=== PATIENT | female | born 1995 | race Caucasian/White ===

== ENCOUNTER 2016-09-03 19:36 | Emergency (ER) | payer MEDICAID, OTHER ==
[~2016-09-03] VITALS: Ht 162.6 cm; Wt 89.0 kg
[2016-09-03] MEDS ORDERED: ACETAMINOPHEN 325MG TABLET PO ONE (23:15)
[2016-09-03 23:23] LABS: CLARITY URINE CLEAR (CLEAR); COLOR URINE DARK YELLOW (YELLOW); GLUCOSE URINE NEGATIVE (NEGATIVE); KETONES URINE 1+ (NEGATIVE); LEUKOCYTE ESTERASE URINE TRACE (NEGATIVE); NITRITE URINE NEGATIVE (NEGATIVE); OCCULT BLOOD URINE NEGATIVE (NEGATIVE); PROTEIN URINE NEGATIVE (NEGATIVE); SPECIFIC GRAVITY URINE 1.028 (1.005-1.030)
[2016-09-03 23:40] LABS: BASOPHILS % 0.1 % (0.0-2.0); EOSINOPHILS % 0.4 % (0.0-5.0); HEMATOCRIT. 34.2 % (36.0-48.0); HEMOGLOBIN. 11.4 g/dL (12.0-16.0); MEAN CORPUSCULAR HEMOGLOBIN 28.3 pg (28.0-32.0); MEAN CORPUSCULAR VOLUME 84.7 fL (81.0-99.0); MEAN PLATELET VOLUME 7.8 fl (7.4-10.4); MONOCYTES % 4.1 % (2.0-8.0); NEUTROPHILS % 84.4 % (40.0-76.0); PLATELET 266 x1000/uL (130-400); RED BLOOD CELL COUNT 4.04 mill/uL (4.2-5.4); RED CELL DISTRIBUTION WIDTH 14.7 % (11.6-14.6)
[2016-09-03 23:45] LABS: CHLORIDE 109 mEq/L (98-107)
[2016-09-03 23:48] LABS: PROTHROMBIN TIME 10.2 sec
[2016-09-03 23:55] LABS: CARBON DIOXIDE 22 mEq/L (21-32)
[2016-09-04] MEDS ORDERED: SODIUM CHLORIDE 0.9% 1,000 ML IV ONE ×2 (01:15→04:00)
[2016-09-04 04:00] VITALS: BP 90/52
== END 2016-09-04 04:17 | disposition home or self-care (01) ==
LOC: ER 19:36
DX: O23.42 Unspecified infection of urinary tract in pregnancy, second trimester (principal); O26.612 Liver and biliary tract disorders in pregnancy, second trimester; K80.70 Calculus of gallbladder and bile duct without cholecystitis without obstruction; Z3A.22 22 weeks gestation of pregnancy
CPT/HCPCS: 36415; 76705; 76815; 80053; 80076; 81001; 81025; 83690; 85025; 85610; 96360; 96361; 99285; J7030; Z7610

== ENCOUNTER 2016-09-27 18:58 | Observation (INO) | payer MEDICAID ==
[~2016-09-27] VITALS: Ht 165.1 cm; Wt 86.2 kg
[2016-09-27] MEDS ORDERED: PREN-88 PO (19:50)
[2016-09-27] MEDS ORDERED: ACETAMINOPHEN 500MG TABLET PO NR (20:00)
[2016-09-27] MEDS ORDERED: LACTATED RINGERS 1,000 ML IV SCH (20:00)
[2016-09-27 20:58] LABS: CLARITY URINE CLEAR (CLEAR); COLOR URINE DARK YELLOW (YELLOW); GLUCOSE URINE NEGATIVE (NEGATIVE); KETONES URINE TRACE (NEGATIVE); LEUKOCYTE ESTERASE URINE 1+ (NEGATIVE); NITRITE URINE NEGATIVE (NEGATIVE); OCCULT BLOOD URINE NEGATIVE (NEGATIVE); PROTEIN URINE 1+ (NEGATIVE); SPECIFIC GRAVITY URINE 1.031 (1.005-1.030)
[2016-09-27 21:05] LABS: BASOPHILS % 0.2 % (0.0-2.0); EOSINOPHILS % 0.9 % (0.0-5.0); HEMATOCRIT. 35.2 % (36.0-48.0); HEMOGLOBIN. 11.6 g/dL (12.0-16.0); LYMPHOCYTES % 12.3 % (20.0-50.0); MEAN CORPUSCULAR HEMOGLOBIN 28.3 pg (28.0-32.0); MEAN CORPUSCULAR VOLUME 85.8 fL (81.0-99.0); MEAN PLATELET VOLUME 8.3 fl (7.4-10.4); MONOCYTES % 5.1 % (2.0-8.0); NEUTROPHILS % 81.5 % (40.0-76.0); PLATELET 280 x1000/uL (130-400); RED CELL DISTRIBUTION WIDTH 14.8 % (11.6-14.6)
[2016-09-27 21:13] LABS: AMYLASE 57 IU/L (25-115); CARBON DIOXIDE 27 mEq/L (21-32); CHLORIDE 105 mEq/L (98-107)
== END 2016-09-27 22:20 | disposition home or self-care (01) ==
LOC: L&D 18:58
PROVIDERS: ADMIT Specialist; ATTEND Specialist
DX: O26.892 Other specified pregnancy related conditions, second trimester (principal); R10.10 Upper abdominal pain, unspecified; Z3A.24 24 weeks gestation of pregnancy
CPT/HCPCS: 36415; 76705; 80053; 81001; 82150; 83690; 85025; 96360; 96361; 99281; G0378; J7120

== ENCOUNTER 2016-10-03 18:25 | Observation (INO) | payer MEDICAID ==
[~2016-10-03 18:25] MED LIST: PREN-88 PO
== END 2016-10-03 19:16 | disposition home or self-care (01) ==
LOC: L&D 18:25
PROVIDERS: ADMIT Specialist; ATTEND Specialist
DX: O26.892 Other specified pregnancy related conditions, second trimester (principal); K82.9 Disease of gallbladder, unspecified; Z3A.25 25 weeks gestation of pregnancy
CPT/HCPCS: 99281; G0378

== ENCOUNTER 2017-01-05 01:11 | Inpatient (IN) | payer MEDICAID ==
[~2017-01-05] VITALS: Ht 162.6 cm; Wt 90.7 kg
[2017-01-05] MEDS ORDERED: LACTATED RINGERS 1,000 ML IV SCH (02:20)
[2017-01-05] MEDS ORDERED: WATER IV NR (03:00)
[2017-01-05] MEDS ORDERED: PENICILLIN IV NR (03:00)
[2017-01-05] MEDS ORDERED: DEXTROSE IV NR (03:00)
[2017-01-05] MEDS ORDERED: DEXT 5%/LR + PITOCIN 20UNITS/L 1,000 ML IV ONE ×2 (03:34→04:45)
[2017-01-05] MEDS ORDERED: LIDOCAINE HCL 1% 20ML VIAL (Pyxis) INJ ONE (03:42)
[2017-01-05] MEDS ORDERED: NALOXONE HCL 0.4 MG/ML 1ML VIAL ONE (03:44)
[2017-01-05 08:15] VITALS: BP 99/58
[2017-01-05 08:50] VITALS: BP 99/61
[2017-01-05] MEDS ORDERED: NALOXONE 0.4 MG IM SCH (09:45)
[2017-01-05] MEDS ORDERED: LIDOCAINE 1% MC SCH (09:45)
[2017-01-05] MEDS ORDERED: ACETAMINOPHEN 325MG TABLET PO PRN (09:45)
[2017-01-05] MEDS ORDERED: METHYLERGONOVINE 0.2 MG IM SCH (09:45)
[2017-01-05] MEDS ORDERED: PITOCIN IV PRN (09:45)
[2017-01-05] MEDS ORDERED: DEXT IV PRN (09:45)
[2017-01-05] MEDS ORDERED: BUTORPHANOL TARTRATE 2 MG/ML VIAL IV PRN (09:45)
[2017-01-05] MEDS ORDERED: [UNRECOGNIZED DRUG - OTHER] IM SCH (09:45)
[2017-01-05 10:10] LABS: INR 0.9; PARTIAL THROMBOPLASTIN TIME 26.6 sec (23.4-31.0); PROTHROMBIN TIME 9.4 sec (9.4-11.6)
[2017-01-05] MEDS ORDERED: ACETAMINOPHEN WITH CODEINE 300/30MG TABLET PO PRN (11:00)
[2017-01-05] MEDS ORDERED: IBUPROFEN 400MG TABLET PO PRN (11:00)
[2017-01-05] MEDS: IBUPROFEN 800MG TABLET PO PRN (11:27)
[2017-01-05 13:58] LABS: GLUCOSE URINE NEGATIVE (NEGATIVE); KETONES URINE NEGATIVE (NEGATIVE); LEUKOCYTE ESTERASE URINE NEGATIVE (NEGATIVE); NITRITE URINE NEGATIVE (NEGATIVE); OCCULT BLOOD URINE NEGATIVE (NEGATIVE); PROTEIN URINE NEGATIVE (NEGATIVE); SPECIFIC GRAVITY URINE 1.018 (1.005-1.030); UROBILINOGEN URINE 0.2 E.U./dL (0.2-1.0)
[2017-01-05 14:00] LABS: CLARITY URINE CLEAR (CLEAR); COLOR URINE YELLOW (YELLOW)
[2017-01-05 14:26] LABS: *AMPHETAMINES SCREEN URINE NEGATIVE (NEGATIVE); *BARBITURATES SCREEN URINE NEGATIVE (NEGATIVE); *BENZODIAZEPINES SCREEN URINE NEGATIVE (NEGATIVE); *COCAINE SCREEN URINE NEGATIVE (NEGATIVE); CANNABINOID URINE SCREEN NEGATIVE (NEGATIVE); METHADONE URINE SCREEN NEGATIVE (NEGATIVE); OPIATES URINE SCREEN NEGATIVE (NEGATIVE); PHENCYCLIDINE URINE SCREEN NEGATIVE (NEGATIVE)
[2017-01-05 14:29] LABS: BASOPHILS % 0.6 % (0.0-2.0); EOSINOPHILS % 1.2 % (0.0-5.0); HEMATOCRIT. 34.7 % (36.0-48.0); HEMOGLOBIN. 11.4 g/dL (12.0-16.0); LYMPHOCYTES % 13.7 % (20.0-50.0); MEAN CORPUSCULAR HEMOGLOBIN 29.6 pg (28.0-32.0); MEAN CORPUSCULAR VOLUME 89.5 fL (81.0-99.0); MEAN PLATELET VOLUME 8.5 fl (7.4-10.4); MONOCYTES % 5.1 % (2.0-8.0); NEUTROPHILS % 79.4 % (40.0-76.0); PLATELET 269 x1000/uL (130-400); RED BLOOD CELL COUNT 3.87 mill/uL (4.2-5.4); RED CELL DISTRIBUTION WIDTH 16.3 % (11.6-14.6)
[2017-01-05 16:11] VITALS: BP 102/61
[2017-01-05 20:00] VITALS: BP 103/55
[2017-01-06 05:30] VITALS: BP 101/59
[2017-01-06] MEDS: IBUPROFEN 800MG TABLET PO PRN ×2 (05:38→14:12)
[2017-01-06 07:15] LABS: BASOPHILS % 0.3 % (0.0-2.0); HEMATOCRIT. 31.6 % (36.0-48.0); HEMOGLOBIN. 10.3 g/dL (12.0-16.0); LYMPHOCYTES % 29.2 % (20.0-50.0); MEAN CORPUSCULAR HEMOGLOBIN 28.6 pg (28.0-32.0); MEAN CORPUSCULAR VOLUME 87.8 fL (81.0-99.0); MEAN PLATELET VOLUME 7.6 fl (7.4-10.4); NEUTROPHILS % 63.5 % (40.0-76.0); PLATELET 246 x1000/uL (130-400); RED BLOOD CELL COUNT 3.59 mill/uL (4.2-5.4)
[2017-01-06 08:19] LABS: HEPATITIS B SURFACE ANTIGEN NEGATIVE; RUBELLA IGG 26.3 IU/mL (4.99-10)
[2017-01-06 08:50] VITALS: BP 102/57
[2017-01-06 15:45] VITALS: BP 103/67
[2017-01-06 19:30] VITALS: BP 105/70
[2017-01-07 00:05] VITALS: BP 98/55
[2017-01-07 07:30] VITALS: BP 102/63
[2017-01-07] MEDS ORDERED: TETANUS, DIPHTHERIA, PERTUSSIS VAC/PF 0.5ML (>7YR OLD) IM ONE (10:00)
[2017-01-07] MEDS ORDERED: INFLUENZA VIRUS VACCINE 0.5ML SYR IM ONE (11:00)
== END 2017-01-07 11:30 | disposition home or self-care (01) | DRG 560 ==
LOC: L&D 01:11 → OBSVTOIN 01:11 → 7EST PP/OB 09:12
PROVIDERS: ADMIT Specialist; ATTEND Specialist
PROC: 10E0XZZ Delivery of Products of Conception, External Approach (ICD-10-PCS; principal; 2017-01-06)
DX: O99.824 Streptococcus B carrier state complicating childbirth (principal); D62 Acute posthemorrhagic anemia; O99.03 Anemia complicating the puerperium; Z3A.39 39 weeks gestation of pregnancy; Z37.0 Single live birth
CPT/HCPCS: 36415; 80305; 81003; 85025; 85610; 85730; 86592; 86703; 86762; 86850; 86900; 87340; 90686; 90715; 99281; J2310; J2590; J3490; J7120

== ENCOUNTER 2017-05-26 21:37 | Emergency (ER) | payer MEDICAID ==
[~2017-05-26] VITALS: Ht 162.6 cm; Wt 77.0 kg
[2017-05-26 21:59] VITALS: BP 143/88
== END 2017-05-27 04:03 | disposition left against medical advice (07) ==
LOC: ER 22:20
DX: Z53.21 Procedure and treatment not carried out due to patient leaving prior to being seen by health care provider (principal)

== ENCOUNTER 2018-07-18 02:07 | Emergency (ER) | payer MEDICAID ==
[~2018-07-18] VITALS: Ht 165.1 cm; Wt 73.0 kg
[2018-07-18] MEDS ORDERED: KETOROLAC 30MG/ML VIAL IV ONE (04:45)
[2018-07-18 06:26] VITALS: BP 116/64
== END 2018-07-18 06:30 | disposition home or self-care (01) ==
LOC: ER 02:07
DX: M54.89 Other dorsalgia (principal)
CPT/HCPCS: 93005; 96374; 99283; J1885; Z7610

== ENCOUNTER 2019-03-04 03:19 | Emergency (ER) | payer MEDICAID ==
[2019-03-04 09:30] VITALS: BP 119/82
== END 2019-03-04 09:45 | disposition home or self-care (01) ==
LOC: ER 03:19
DX: F41.9 Anxiety disorder, unspecified (principal)
CPT/HCPCS: 36415; 84443; 99283